=== PATIENT | female | born 1935 | race Asian ===

== ENCOUNTER 2017-04-28 10:27 | Outpatient (CLI) | payer OTHER, MEDICAID ==
[~2017-04-28 10:27] MED LIST: ATEN-166 PO; ATEN-41 PO; CLOP75TA2 PO; DEXL60CA3 PO; GLIP10TA11 PO; LEVO125T8 PO; LINA5TAB2 PO; MIRT30TA3 PO; PREG75CA PO; SER25 PO; TRAM50TA92 PO; VALS160T2 PO
== END 2017-04-29 07:18 | disposition home or self-care (01) ==
LOC: SMA 10:27
PROVIDERS: ATTEND Internal Medicine
DX: Z12.31 Encounter for screening mammogram for malignant neoplasm of breast (principal)
CPT/HCPCS: G0202

== ENCOUNTER 2017-08-10 10:28 | Outpatient (CLI) | payer OTHER, MEDICAID | END 2017-08-10 19:31 | disposition home or self-care (01) | LOC: SMI 10:28 | DX: M48.06 Spinal stenosis, lumbar region (principal); M51.26 Other intervertebral disc displacement, lumbar region; M47.896 Other spondylosis, lumbar region | CPT/HCPCS: 72148 ==

== ENCOUNTER 2018-01-10 10:33 | Outpatient (CLI) | payer OTHER, MEDICAID ==
[2018-01-10 11:38] LABS: PFT COLLAGEN/ADP 82 SECONDS (64-106); PFT COLLAGEN/EPINEPHRINE 94 SECONDS (80-184)
== END 2018-01-10 19:57 | disposition home or self-care (01) ==
LOC: SLB 10:33
DX: I25.10 Atherosclerotic heart disease of native coronary artery without angina pectoris (principal)
CPT/HCPCS: 36415; 85576

== ENCOUNTER 2018-01-30 09:18 | Outpatient (CLI) | payer OTHER, MEDICAID | END 2018-01-30 19:55 | disposition home or self-care (01) | LOC: SMI 09:18 | PROVIDERS: ATTEND Anesthesiology Pain Medicine | DX: M47.896 Other spondylosis, lumbar region (principal); N28.1 Cyst of kidney, acquired | CPT/HCPCS: 72148 ==